=== PATIENT | female | born 1970 | race Caucasian/White ===

== ENCOUNTER → 2018-10-27 | Outpatient (REF) | payer OTHER ==
[2018-11-03 14:51] LABS: HPV LOW VOL RFLX Negative (Negative)
== END ==
LOC: M LAB LCGH 13:03
PROVIDERS: ATTEND Nurse Practitioner Adult Health
DX: Z12.4 Encounter for screening for malignant neoplasm of cervix (principal)

== ENCOUNTER → 2021-11-21 | Outpatient (REF) | payer OTHER | LOC: M SFHCDERM 14:14 | PROVIDERS: ATTEND Nurse Practitioner Family | DX: L82.1 Other seborrheic keratosis (principal) ==

== ENCOUNTER → 2022-03-09 | Outpatient (REF) | payer OTHER | LOC: M SFHCDERM 17:16 | PROVIDERS: ATTEND Nurse Practitioner Family | DX: C44.509 Unspecified malignant neoplasm of skin of other part of trunk (principal) ==